=== PATIENT | male | born 1995 | race Caucasian/White ===

== ENCOUNTER 2017-10-17 10:03 | Emergency (ER) | payer SELFPAY ==
[~2017-10-17] VITALS: Ht 177.8 cm; Wt 77.3 kg
[2017-10-17 10:06] VITALS: BP 142/79; PULSE 85; TEMP 98.2
[2017-10-17] MEDS ORDERED: CLARITIN 1010 MG/TAB PO (10:25)
== END 2017-10-17 11:56 | disposition home or self-care (01) ==
LOC: COL.ER 10:03
DX: S01.111A Laceration without foreign body of right eyelid and periocular area, initial encounter (principal); Z23 Encounter for immunization; W22.8XXA Striking against or struck by other objects, initial encounter; Y92.89 Other specified places as the place of occurrence of the external cause

== ENCOUNTER 2017-10-24 16:18 | Emergency (ER) | payer SELFPAY ==
[~2017-10-24 16:18] MED LIST: CLARITIN 1010 MG/TAB PO
[2017-10-24 16:26] VITALS: BP 127/69; PULSE 79; TEMP 98.6
== END 2017-10-24 16:40 | disposition home or self-care (01) ==
LOC: COL.ER 16:18
DX: S01.111D Laceration without foreign body of right eyelid and periocular area, subsequent encounter (principal); X58.XXXD Exposure to other specified factors, subsequent encounter